=== PATIENT | female | born 1990 | race African-American/Black ===

== ENCOUNTER 2016-11-20 14:52 | Emergency (ER) | payer MEDICARE, MEDICAID ==
[2016-11-20 15:33] LABS: BASOPHILS 0.3 % (0.0-2.0); EOSINOPHILS 2.1 % (0-7); HEMATOCRIT 37.5 % (36.0-48.0); HEMOGLOBIN 11.4 g/dL (12-16); IMMATURE GRANULOCYTES 0.2 % (0-5); MCH 22.1 pg (26.0-34.0); MCHC 30.4 g/dL (31.0-37.0); MCV 72.5 fL (80.0-100.0); MEAN PLATELET VOLUME 9.8 fL (7.4-10.4); MONOCYTES 6.8 % (2-11); NEUTROPHILS 45.6 % (40-80); PLATELET COUNT 252 10x3/uL (130-400); RBC 5.17 10x6/uL (4.00-5.40); RDW 20.4 % (11.5-14.5); WBC 6.1 10x3/uL (4.8-10.8)
[2016-11-20 15:54] LABS: HCG SERUM NEGATIVE (NEGATIVE)
[2016-11-20 21:07] LABS: APPEARANCE CLOUDY (CLEAR); COLOR YELLOW (YELLOW); LEUKOCYTE ESTERASE TRACE (NEGATIVE)
[2016-11-20 21:08] LABS: BACTERIA FEW /hpf (NONE SEEN); BILIRUBIN NEGATIVE (NEGATIVE); EPITHELIAL CELLS 0-5 /hpf (0-5); GLUCOSE NEGATIVE (NEGATIVE); KETONE NEGATIVE (NEGATIVE); MUCUS <1+ /lpf (NONE SEEN); NITRITE NEGATIVE (NEGATIVE); PROTEIN NEGATIVE (NEGATIVE); RED CELLS - URINE >50 /hpf (0-5); UROBILINOGEN NORMAL (NORMAL); WHITE CELLS - URINE OCC /hpf (0-5)
[2016-11-20 21:38] LABS: UDS - AMPHET NEGATIVE QUAL (NEGATIVE); UDS - BARB NEGATIVE QUAL (NEGATIVE); UDS - BENZO NEGATIVE QUAL (NEGATIVE); UDS - COCAINE NEGATIVE QUAL (NEGATIVE); UDS - METH NEGATIVE QUAL (NEGATIVE); UDS - OPIATE NEGATIVE QUAL (NEGATIVE); UDS - PCP NEGATIVE QUAL (NEGATIVE); UDS - THC NEGATIVE QUAL (NEGATIVE)
== END 2016-11-20 21:08 | disposition home or self-care (01) ==
LOC: D.ER 14:52
PROVIDERS: Emergency Medicine; Physician Assistant Medical
DX: N93.8 Other specified abnormal uterine and vaginal bleeding (principal)

== ENCOUNTER 2017-06-24 13:13 | Emergency (ER) | payer MEDICARE | END 2017-06-24 15:03 | disposition home or self-care (01) | LOC: D.ER 13:13 | DX: L03.111 Cellulitis of right axilla (principal) ==